=== PATIENT | male | born 1955 | race Caucasian/White ===

== ENCOUNTER 2020-03-25 14:31 | Outpatient (CLI) | payer MEDICARE, SELFPAY ==
--- NOTE | ~2020-03-25 | XR_ITS ---
XR chest 2V DATE: 03/25/2020 14:55 INDICATION: Cough. Lung nodule. TECHNIQUE: PA and lateral views COMPARISON: 09/05/2018 CT chest FINDINGS: No pulmonary infiltrate or consolidation, pleural effusion or pulmonary vascular congestion or pneumothorax is evident. No suspicious pulmonary mass is noted. Normal heart size. Mild aortic to rtuosity. No hilar or mediastinal enlargement. Degenerative spurring and mild scoliosis of the thoracic spine. IMPRESSION: No active cardiopulmonary disease Reviewed, dictated and finalized at location A.
== END 2020-03-25 14:32 | disposition home or self-care (01) ==
PROVIDERS: PCP Family Medicine; Visit Provider Nurse Practitioner Family
DX: R05 Cough (principal)
CPT/HCPCS: 71046

== ENCOUNTER 2020-04-12 06:36 | Outpatient (CLI) | payer MEDICARE, SELFPAY ==
--- NOTE | ~2020-04-12 | NM_ITS ---
EXAMINATION: NM ford stress w perfusion DATE: 04/12/2020 11:33 INDICATION: Chest pain TECHNIQUE: Rest images were obtained following intravenous administration of 10 mCi Tc99m tetrofosmin (Myoview). The patient was infused intravenously with Lexiscan (Regadenoson). Then, 29.7 mCi Tc99m t etrofosmin (Myoview) was administered intravenously, and stress images were obtained in supine positi on. Patient was unable to tolerate prone imaging. Data was reconstructed into short axis and horizont al and vertical long axis SPECT images. Gated SPECT images were also obtained. COMPARISON: 04/29/2019 FINDINGS: Again seen are perfusion defects on either or both rest and stress images involving the api eric septal, apical inferior, mid inferior, apical lateral and mid inferolateral segments which appear s similar to the prior study and which on the prior study appear to significantly improved with prone imaging suggesting diaphragmatic attenuation artifact. There are perfusion defects on the stress claus ges in the mid anteroseptal, mid inferoseptal and inferior basilar segments which appear greater on t he rest images and slightly greater than on the supine imaging on the prior study which also reversed on the prior study with prone imaging. This could represent a new regions of ischemia however as thi s region did appear to demonstrate some positional dependent decreased activity on the prior study di fferential would also include attenuation artifact. There is normal left ventricular chamber size, wa ll motion and ejection fraction including of the septal, inferior and inferolateral gil which demon strate the decreased activity. Left ventricular ejection fraction measures 64%. IMPRESSION: 1. Perfusion defects on both rest and stress images along portions of the septal, inferior and infero lateral gil which were present at the time of the prior study at which time they significantly impr shaniqua with prone imaging suggesting artifact. 2. New regions of reversible mild decreased perfusion at the mid anteroseptal, apical septal and basi lar inferior segments which appear more prominent than on the prior study but which on the prior stud y also improved with prone imaging and these remain equivocal for ischemia versus artifact. 3. Normal left ventricular ejection fraction measuring 64%. Reviewed, dictated and finalized at location A. IMPRESSION: 1. Perfusion defects on both rest and stress images along portions of the septa l, inferior and inferolateral gil which were present at the time of the prior study at which time they significantly improved with prone imaging suggesting artifact. 2. New regions of reversible mild decreased perfusion at the mid anteroseptal, apical septal and basilar inferior segments which appear more prominent than on the prior study but which on the prior study also improved with prone imaging and these remain equivocal for ischemia versus artifact. 3. Normal left ventricular ejection fraction measuring 64%.
--- NOTE | 2020-04-12 07:01 | ECHO_ITS ---
Patient Info Name: Ashok Slater Age: 64 years : 1955 Gender: Male Ht: 71 in Wt: 250 lbs BSA: 2.42 m2 HR: 85 bpm BP: 136 / 70 mmHg Technical Quality: Fair Exam Date: 04/12/2020 7:06 AM Exam Location: [facility]monary Patient Status: Outpatient Admit Date: 04/12/2020 Staff Ordering Physician: Swapnil Maxwell DO Or Assistant: Cheyenne Guzman RDCS Attending Provider: Swapnil Maxwell DO Referring Physician: Hans CASTANEDA; Exam Type: CA echo doppler color flow Study Info Indications R07.9 - Chest pain, unspecified Complete two-dimensional, color flow and Doppler transthoracic echocardiogram is performed. Summary 1. Left ventricular chamber dimension is normal. 2. Left ventricular systolic function is normal, estimated at 60-65%. 3. The left ventricular diastolic function is grade II diastolic dysfunction. 4. E/e' 8 is minimally elevated. 5. Global longitudinal strain is slightly abnormal at -16.5%. 6. No pulmonary hypertension, estimated pulmonary arterial systolic pressure is 26 mmHg. Left Ventricle E/e' 8 is minimally elevated. Global longitudinal strain is slightly abnormal at -16.5%. Left ventricular chamber dimension is normal. Left ventricular systolic function is normal, estimated at 60-65%. The left ventricular diastolic function is grade II diastolic dysfunction. Right Ventricle Right ventricular chamber dimension is normal. Right ventricular systolic function is normal. Left Atria Left atrial chamber dimension is normal. Right Atria Right atrial chamber dimension is normal. Aortic Valve The aortic valve is trileaflet. There is no aortic valve stenosis. There is no aortic valve regurgitation. Pulmonic Valve There is no pulmonic regurgitation. Mitral Valve There is no mitral valve stenosis. There is no mitral valve regurgitation. Tricuspid Valve There is no tricuspid valve regurgitation. No pulmonary hypertension, estimated pulmonary arterial systolic pressure is 26 mmHg. Pericardium/Pleural There is no pericardial effusion. Inferior Vena Cava Normal inferior vena cava with >50% collapse upon inspiration consistent with normal right atrial pressure, 5 mmHg. Aorta The aortic root size at the sinus of Valsalva is normal. Left Ventricular Outflow Tract Name Value Normal LVOT 2D LVOT Diameter 2.0 cm LVOT Doppler LVOT Peak Gradient 3 mmHg LVOT Mean Gradient 2 mmHg LVOT VTI 20 cm LVOT VTI/AV VTI Ratio 0.9 LVOT Stroke Volume 64 ml LVOT CO 4.8 l/min LVOT CI 2.0 l/min/m2 Pulmonic Valve Name Value Normal RVOT Doppler RVOT Peak Gradient 3 mmHg PV Doppler -------
--- NOTE | 2020-04-12 07:01 | EST_ITS ---
Patient Info Name: Ashok Slater Age: 64 years : 1955 Gender: Male Ht: 71 in Wt: 250 lbs BSA: 2.42 m2 Exam Date: 04/12/2020 9:11 AM Exam Location: [facility] Stress Patient Status: Outpatient Admit Date: 04/12/2020 Staff Ordering Physician: Swapnil Maxwell DO Attending Provider: Swapnil Maxwell DO Exercise Technologist: Cheyenne Guzman RDCS Exercise Physician: Swapnil Maxwell DO Exam Type: CA stress ford w NM Study Info Indications R07.9 - Chest pain, unspecified A regadenoson stress test was performed. Summary 1. 1. Negative lexiscan stress test for ischemic ST changes by ECG criteria. 2. 2. Stable hemodynamics throughout the test. 3. 3. Nuclear scan to follow and will be reported separately. Please correlate with it. 4. 4. Patient informed of the above results. Protocol: Lexiscan Stress ECG Details Stage: REST Duration (min): 9 min : 44 sec Vazquez: --- Speed (mph): 0.0 Grade (%): 0 HR (bpm): 77 SBP (mmHg): 102 DBP (mmHg): 64 METS: --- Stage: REST Duration (min): 20 min : 15 sec Vazquez: --- Speed (mph): 0.0 Grade (%): 0 HR (bpm): 76 SBP (mmHg): 102 DBP (mmHg): 64 METS: --- Stage: STAGE 1 Duration (min): 0 min : 59 sec Vazquez: --- Speed (mph): 0.0 Grade (%): 0 HR (bpm): 89 SBP (mmHg): 114 DBP (mmHg): 69 METS: --- Stage: RECOVERY Duration (min): 1 min : 0 sec Vazquez: --- Speed (mph): 0.0 Grade (%): 0 HR (bpm): 92 SBP (mmHg): 102 DBP (mmHg): 69 METS: --- Stage: RECOVERY Duration (min): 2 min : 0 sec Vazquez: --- Speed (mph): 0.0 Grade (%): 0 HR (bpm): 89 SBP (mmHg): 102 DBP (mmHg): 69 METS: --- Stage: RECOVERY Duration (min): 3 min : 0 sec Vazquez: --- Speed (mph): 0.0 Grade (%): 0 HR (bpm): 84 SBP (mmHg): 107 DBP (mmHg): 68 METS: --- Stage: RECOVERY Duration (min): 3 min : 4 sec Vazquez: --- Speed (mph): 0.0 Grade (%): 0 HR (bpm): 84 SBP (mmHg): 107 DBP (mmHg): 68 METS: --- Rest HR: 76 bpm Peak HR: 95 bpm Rest Sys BP: 102 mmHg Peak Sys BP: 114 mmHg Max Pred HR: 155 bpm % Max Pred HR: 61 % Target HR: 132 bpm Max RPP: 10,830 bpm*mmHg Stiles Score: -4 Termination Reason: Completed protocol Cardiac Symptoms: Shortness of breath, Baseline cp 5/10 and went to 7-8/10 with lexiscan, Chest pain Max ST Seg Deviation: 1 mm Total Time: 1 min : 0 sec Rest Cortes BP: 64 mmHg Peak Cortes BP: 69 mmHg Angina Score: None Total Dose: 0.4 mg Total METS: 1.0 Resting ECG Sinus rhythm with first degree AV block, delayed precordial R/S transition, borderline T wave in high lateral leads. Stress ECG No ST changes. Arrhythmias None. Report Signatures
== END 2020-04-12 06:37 | disposition home or self-care (01) ==
PROVIDERS: PCP Family Medicine; Visit Provider Internal Medicine Cardiovascular Disease
DX: R07.9 Chest pain, unspecified (principal)
CPT/HCPCS: 78452; 93017; 93306; A9502; J2785

== ENCOUNTER 2020-04-26 00:44 | Outpatient (CLI) | payer MEDICARE, SELFPAY ==
[2020-04-26 19:16] LABS: SARS-CoV-2 RNA PCR Negative
== END 2020-04-26 00:45 | disposition home or self-care (01) ==
LOC: ANHCOVIDDT 00:45
PROVIDERS: PCP Family Medicine; Visit Provider Internal Medicine Cardiovascular Disease
DX: Z01.818 Encounter for other preprocedural examination (principal); Z11.59 Encounter for screening for other viral diseases
CPT/HCPCS: 87635; C9803; U0003

== ENCOUNTER 2020-04-28 05:40 | Day surgery (SDC) | payer MEDICARE, SELFPAY ==
[2020-04-27 14:24] VITALS: BMI 34.7
[2020-04-28] VITALS (9 sets, daily range): BP systolic 103–117; BP diastolic 62–84; PULSE 65–80; RESP 14–22; TEMP 36.4; O2SAT 95–99
[2020-04-28 10:12] LABS: Basophils Absolute Auto 0.1 K/mm3 (0.0-0.1); Basophils Percent Auto 0.7 % (0.2-1.2); Eosinophils Absolute Auto 0.2 K/mm3 (0-0.3); Eosinophils Percent Auto 3.1 % (0-4.4); Hematocrit 35.1 % (42.0-52.0); Hemoglobin 12.6 g/dL (14.0-18.0); Immature Granulocyte Absolute 0.02 K/mm3 (0.00-0.031); Immature Granulocyte Percent A 0.3 % (0-0.5); Lymphocytes Absolute Auto 2.37 K/mm3 (0.9-3.2); Lymphocytes Percent Auto 35.3 % (18.3-44.2); Mean Corpuscular HGB Conc 35.9 g/dl (32-36); Mean Corpuscular Hemoglobin 30.7 pg (26-34); Mean Corpuscular Volume 85.6 fl (80-100); Mean Platelet Volume 9.6 fl (7.4-10.4); Monocytes Absolute Auto 0.6 K/mm3 (0.1-0.6); Monocytes Percent Auto 8.2 % (2.6-8.5); Neutrophils Absolute Auto 3.5 K/mm3 (1.3-6.7); Neutrophils Percent Auto 52.4 % (45.5-73.1); Platelet Count Result 220 k/mm3 (150-375); Red Cell Distribution Width 12.3 % (11.5-14.5); White Blood Count 6.7 K/mm3 (4.5-10.0)
[2020-04-28 10:32] LABS: Blood Urea Nitrogen 22 mg/dL (9-20); Calcium 8.7 mg/dL (8.4-10.2); Carbon Dioxide 20 mmol/L (22-30); Chloride 105 mmol/L (98-107); Estimated CRCL calculation 83 ml/min; Estimated Glomerular Filt Rate > 60; Glucose 291 mg/dL (75-110); INR 1.1; Potassium 4.6 mmol/L (3.4-5.0); Prothrombin Time 13.6 Seconds (11.1-14.7); Sodium 135 mmol/L (137-145)
--- NOTE | 2020-04-28 11:08 | WPDMODSED ---
Moderate Sedation Note-Pt Data Patient Data Allergies Allergy/AdvReac Type Severity Reaction Status Date / Time No Known Allergies Allergy Verified 04/19/20 08:15 Home Medications Medication Instructions Recorded Confirmed Type nitroglycerin 0.4 mg sublingual 0.4 mg SUBLINGUAL Q5M PRN #30 10/16/19 04/27/20 Rx tablet tablet metformin 1,000 mg tablet 1,000 mg PO BID #180 tablet 10/28/19 04/27/20 Rx aspirin 81 mg tablet,delayed 81 mg PO DAILY 11/03/19 04/27/20 History release levothyroxine 75 mcg tablet 75 mcg PO DAILY #30 tablet 03/24/20 04/27/20 Rx sertraline 100 mg tablet 200 mg PO DAILY #60 tablet 03/24/20 04/27/20 Rx isosorbide mononitrate 30 mg 30 mg PO DAILY #30 tablet 04/01/20 04/27/20 Rx tablet,extended release 24 hr ascorbic acid (vitamin C) 1,000 mg 1 gm PO DAILY 04/19/20 04/27/20 History tablet metoprolol succinate 25 mg 25 mg PO DAILY #30 tablet 04/19/20 04/27/20 Rx tablet,extended release 24 hr multivitamin 1 tablet PO DAILY 04/19/20 04/27/20 History omega-3 fatty acids 1,000 mg 1,000 mg PO DAILY 04/19/20 04/27/20 History capsule rosuvastatin 40 mg tablet 20 mg PO DAILY #30 tablet 04/19/20 04/27/20 Rx meloxicam 15 mg tablet 15 mg PO DAILY #30 tablet 04/20/20 04/27/20 Rx lisinopril 5 mg tablet 2.5 mg PO DAILY #90 tablet 04/25/20 04/27/20 Rx Current Medications: Active Medications Sodium Chloride (Normal Saline Iv) 500 mls @ 100 mls/hr IV CONT .Q5H JUANA Sedation/Anesthesia: No previous sedation/anesthesia problems (including family history). COUNT INCLUDES THE [facility] Past Medical History Medical History Colon polyp Lung nodule Family History Family History Father Hypertension Cerebrovascular accident Family history of malignant neoplasm Family history of pancreatic cancer, Onset Age: 83 Mother Family history of heart disease in male family member before age 55 Family history of Edmonson's chorea Social History Social History Smoking status: Former smoker Second hand tobacco smoke exposure: Yes Alcohol intake: former Substance use: never Substance use type: does not use Last use: 2014 Living arrangements: with family Gender identity (if verbalized by the patient): Male Spiritual care concerns: No Mod Sed Physical Exam Physical Exam Pre Procedural Exam: Normal: Appearance, Eyes, Ears, Nose, Neck, Throat, Airway, Lungs, Heart Size, Heart Rate, Heart Rhythm, Neuro Exam, Abdomen, Liver, Kidneys, Spleen, Breasts, Genitalia, Extremities and Skin Hours since solid foods: 8 Hours since liquid intake: 8 Internal Medicine - PN: Obj Da Meds/Results Medications: Active Medications Generic Name Dose Route Start Last Admin Trade Name Freq PRN Reason Stop Dose Admin Sodium Chloride 500 mls @ 100 mls/hr 04/28/20 06:05 Normal Saline Iv IV CONT .Q5H JUANA Labs CBC & Chem 7: 04/28/20 10:05 04/28/20 10:05 Labs: Laboratory Results - last 24 hr 04/28/20 04/28/20 04/28/20 10:05 10:05 10:05 WBC 6.7 RBC 4.10 L Hgb 12.6 L Hct 35.1 L MCV 85.6 MCH 30.7 MCHC 35.9 RDW 12.3 Plt Count 220 MPV 9.6 Immature Gran % (Auto) 0.3 Neut % (Auto) 52.4 Lymph % (Auto) 35.3 Wilkes % (Auto) 8.2 Eos % (Auto) 3.1 Baso % (Auto) 0.7 Lymph # (Auto) 2.37 Wilkes # (Auto) 0.6 Eos # (Auto) 0.2 Baso # (Auto) 0.1 Abs Immat Gran (auto) 0.02 Absolute Neuts (auto) 3.5 Absolute Nucleated RBC 0.0 Nucleated RBC % 0.0 PT 13.6 INR 1.1 Sodium 135 L Potassium 4.6 Chloride 105 Carbon Dioxide 20 L BUN 22 H Creatinine 1.00 Estim Creat Clear Calc 83 Estimated GFR > 60 Glucose 291 H Calcium 8.7 ASA Classification/Sedation ASA Classification/Sedation ASA Class: I Emergent: No Ris
--- NOTE | 2020-04-28 11:09 | WPDHPUPDATE1 ---
History and Physical Update Update Date/Time: 04/28/20 11:09 History and Physical has been reviewed, including an updated exam of the patient. There are NO changes in the patient's condition. Risks, benefits, and alternatives have been discussed and questions answered. Patient agrees to proceed with procedure.
--- NOTE | 2020-04-28 11:09 | WPDCARDPROC ---
Cardiac Cath Procedure Note Date of procedure:: 04/28/20 Performing physician:: Dinesh Browne MD Date of service 04/28/2020 Indication:: abnormal stress test on exertion chest pain. Brief clinical history:: 64-year-old patient with past medical history of diabetes, hypothyroidism, coronary artery disease with 2 stents placed in 2017 in the circumflex artery and right coronary artery. He was having chest pain. Underwent stress testing that was abnormal. Was brought in to define coronary anatomy. Procedure Procedure performed:: 1-Moderate sedation that started at 1119 am and ended at 11:40 a.m. with total duration 21 minutes using 4mg of Versed and 100mcg fentanyl. The registered nurse was dianna hawley. 2-Selective left and right coronary angiogram. 3-Left heart catheterization with measurement of LVEDP and measurement of gradient across aortic valve. 4-Right common femoral arterial angiogram. 5-Deployment of 6 [place] Angio-Seal. Sedation/Medication given:: Moderate sedation. Access site:: Right common femoral artery. Estimated blood loss:: 10cc Procedure note:: After informed consent patient was brought in to central lab technician with the was draped and prepped in usual manner. Moderate sedation was given and the right groin was infiltrated using 1% lidocaine. Five [place] sheath was obtained using micropuncture needle and the modified Seldinger technique. Selective left coronary angiogram was done using JL4 catheter with the tip of the catheter placed in the left main coronary artery. Selective right coronary angiogram was done using JR4 catheter with the tip of the catheter placed to the right coronary artery. After that 5 [place] pigtail catheter was advanced across the aortic valve into the left ventricle with measurement of LVEDP and measurement of gradient across aortic valve. Right common femoral arterial angiogram was done. Findings:: 1- left coronary artery is a large artery that divides into large LAD, large circumflex artery and medium-size ramus intermedius. Left main is Free of disease. 2- left anterior descending artery is a large artery that runs and wraps around the apex. Has diffuse 20-30% proximally. Mid segment gives rise to medium size diagonal branch that looks free of disease. 3- leftcircumflex artery is a large artery And has patent stent in the mid segment. 4- The ramus intermedius is medium in size and free of disease. 4- right coronary artery is Large artery and dominant and has patent stent in the mid segment and there is of the vessels free of disease. 5- LVEDP was 50 mm Hgand no gradient across aortic valve. 6- opening arterial pressure was 90/60 and closing pressure was 100/70. 7- right femoral artery angiogram shows no significant disease in the right common femoral artery. Conclusion:: False positive stress test. Patent stents in the RCA and the left circumflex artery. Assessment and Plan Additional Plan Continue risk factor modification for CAD.
--- NOTE | 2020-04-28 16:14 | SUR.PHASEII ---
1500-pt given D/C orders and instructions. Questions answered and verbalized understanding. AOx4. PIV removed intact. Groin soft and non-tender, no evidence of bleeding or hematoma noted. Strong right pedal pulse noted. Taken via wheelchair to waiting vehicle. No distress noted or verbalized at time of departure.
== END 2020-04-28 15:00 | disposition home or self-care (01) ==
PROVIDERS: PCP Family Medicine; Visit Provider Internal Medicine Cardiovascular Disease
PROC: 4A023N7 Measurement of Cardiac Sampling and Pressure, Left Heart, Percutaneous Approach (ICD-10-PCS; CPT 93452; principal; 2020-04-28 11:00)
DX: R94.39 Abnormal result of other cardiovascular function study (principal); R07.89 Other chest pain; I25.10 Atherosclerotic heart disease of native coronary artery without angina pectoris; I10 Essential (primary) hypertension; E78.5 Hyperlipidemia, unspecified; G47.33 Obstructive sleep apnea (adult) (pediatric); E11.9 Type 2 diabetes mellitus without complications; E03.9 Hypothyroidism, unspecified; Z95.5 Presence of coronary angioplasty implant and graft; Z79.84 Long term (current) use of oral hypoglycemic drugs; Z79.82 Long term (current) use of aspirin; Z87.891 Personal history of nicotine dependence
CPT/HCPCS: 36415; 80048; 85025; 85610; 87635; 93458; A9270; C1760; C1769; C1887; C1894; C9803; G0269; J1644; J2250; J3010; J7040; U0003

== ENCOUNTER 2020-05-12 12:49 | Outpatient (CLI) | payer MEDICARE, SELFPAY ==
--- NOTE | ~2020-05-12 | CT_ITS ---
EXAMINATION: CTA chest PE protocol DATE: 05/12/2020 13:14 INDICATION: Chest pain TECHNIQUE: Computed tomography angiography (CTA) of the chest was performed with 100 mL Omnipaque-350 intravenous contrast timed to evaluate the pulmonary arteries. Coronal maximum intensity projection 3D-reconstructions were created by the technologist. Automated exposure control and iterative reconst ruction technique were employed. Exam dose: 914.85 mGy-cm total exam DLP. COMPARISON: 09/05/2018 CT chest with IV contrast material FINDINGS: There is diagnostic contrast enhancement of the pulmonary arteries. There is no evidence o f pulmonary embolism. No thoracic aortic aneurysm or dissection. Normal heart size. Coronary artery calcifications. No pericardial or pleural effusion. No hilar or mediastinal mass lesion or lymphadenopathy. Mild emphysematous changes of the lungs. There is mild discoid atelectasis or scarring in the posteri or aspect of the lower lobes. No pulmonary infiltrate or consolidation. Calcified pulmonary granuloma of the left upper lobe (series 4 image 49. No suspicious pulmonary mass lesion. Normal morphology of the adrenal glands. Included upper abdominal structures are unremarkable. Old healed lower right posterior rib fractures. Diffuse idiopathic skeletal hyperostosis of the thoracic spine. IMPRESSION: No evidence of pulmonary embolism Mild emphysema Coronary artery calcifications Reviewed, dictated and finalized at Location A. Reviewed, dictated and finalized at location B.
== END 2020-05-12 12:50 | disposition home or self-care (01) ==
LOC: ANHIMG 12:56
PROVIDERS: PCP Family Medicine; Visit Provider Internal Medicine Cardiovascular Disease
DX: R07.9 Chest pain, unspecified (principal); J43.9 Emphysema, unspecified; I25.10 Atherosclerotic heart disease of native coronary artery without angina pectoris
CPT/HCPCS: 71275; Q9967

== ENCOUNTER 2020-09-09 00:32 | Outpatient (CLI) | payer MEDICARE, SELFPAY ==
[2020-09-09 19:24] LABS: SARS-CoV-2 RNA PCR Negative
== END 2020-09-09 00:33 | disposition home or self-care (01) ==
LOC: ANHCOVIDDT 00:32
PROVIDERS: PCP Family Medicine; Visit Provider Internal Medicine Critical Care Medicine
DX: Z20.828 Contact with and (suspected) exposure to other viral communicable diseases (principal)
CPT/HCPCS: 87635; C9803; U0003

== ENCOUNTER 2020-09-12 08:49 | Outpatient (CLI) | payer MEDICARE, SELFPAY ==
--- NOTE | 2020-11-01 08:03 | WPDSLEEPSTUD ---
Sleep Study Date of Study: 09/12/20 Ordering Provider: Diane Ellis MD Interpreting Physician: Diane Ellis MD Sleep Study Type: CPAP Titration Height: 1.8 m Weight: 118.841 kg Body Mass Index: 36.5 Neck Circumference: 19 cm Tonica: 6 Reason for Sleep Study known PRABHAKAR, re-titration Sleep History Ashok Slater is a 65 year old man with obstructive sleep apnea diagnosed 03/28/1999 with RDI 26, minimum saturation 73%, with optimal pressure 10 cm. He has been using APAP 10-16 cm with excessive daytime sleepiness despite excellent compliance. He rarely snores loud Ibrahima. He does not awaken at night with heartburn and belching or coughing. He occasionally awakens from sleep feeling short of breath. He occasionally has trouble sleep with a cold, occasionally gasp for breath at night. He constantly has breathing problems at night observed by others. He occasionally sweats excessively at night, occasionally notices his heart pounding or beating irregularly at night, occasionally falls asleep during the day occasionally involuntarily rarely while driving. He rarely sleeps falls asleep during physical effort. He does not feel a loss of muscle tone was strong emotion. He does not have daytime difficulties due to excessive sleepiness. He does not have vivid dreamlike scenes upon awakening or falling asleep. He does not feel paralyzed on waking or falling asleep. He has never for a to go to sleep. He denies nightmares. He rarely remembers his dreams. He occasionally has racing thoughts. He does at times have feeling of sadness or depression and occasionally feels anxiety. He occasionally has muscular tension. He occasionally notices parts of his body jerking. He frequently kicks at night. He frequently has crawling and aching feelings in his legs and frequently has leg pains at night. He does not have morning jaw pain. He does not grind his teeth any longer. He frequently is bothered by pain during the day as well as at night, wakes up feeling stiff in the morning with sore achy muscles and pain in the neck and spine. He has headaches, palpitations dizziness fatigue sexual problems memory problems and has a poor home situation. Normal bedtime is between 11 and 12:00 p.m. falling asleep shortly after smoking. He wakes up anywhere between 2 and 4 times at night for 1/2 hour on average. He will still steroid the ceiling, just get up. He wakes the morning between 6 and 7:00 a.m.. He does take naps during the day. Naps are not refreshing. Habits: Prior tobacco, prior heavy alcohol quit 14 years ago. 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 eye prosthesis Hypothyroidism Lung nodule Mixed hyperlipidemia PRABHAKAR on CPAP Surgical History Surgical History (Updated 11/01/20 @ 08:16 by Diane Ellis MD) History of appendectomy History of tonsillectomy and adenoidectomy Family History Family History Father Hypertension Cerebrovascular accident Family history of malignant neoplasm Family history of pancreatic cancer, Onset Age: 83 Mother Family history of heart disease in male family member before age 55 Family history of Hillsdale's chorea Social History Social History Smoking status: Former smoker Second hand tobacco smoke exposure: Yes Alcohol intake: former Substance use: never Substance use type: does not use Last use: 2014 Gender identity (if verbalized by the patient): Male Spiritual care concerns: No Medications Home Medications Medication Instructions Recorded Confirmed
[2020-11-01 08:07] VITALS: BMI 36.5
== END 2020-09-12 08:50 | disposition home or self-care (01) ==
LOC: ANHCSM 08:50
PROVIDERS: PCP Family Medicine; Visit Provider Internal Medicine Critical Care Medicine
DX: G47.33 Obstructive sleep apnea (adult) (pediatric) (principal)
CPT/HCPCS: 95811